=== PATIENT | male | born 1950 | race Two or more races ===

== ENCOUNTER 2020-02-08 17:32 | Inpatient (IN) | payer OTHER ==
[~2020-02-08] VITALS: Ht 170.2 cm; Wt 54.4 kg
[2020-02-08] MEDS ORDERED: ZOFRAN8 MG (17:41)
[2020-02-08] MEDS ORDERED: TRAM1TAB98 (17:41)
[2020-02-08] MEDS ORDERED: AVAPRO75 MG (17:42)
[2020-02-08] MEDS ORDERED: SYNTHROID75 MCG (17:42)
== END 2020-02-14 16:33 | disposition home or self-care (01) | DRG 693 ==
LOC: ER 17:32 → MEDJ 02-09 01:31
PROVIDERS: Radiology Vascular & Interventional Radiology; ADMIT Urology; ATTEND Urology
PROC: BW21ZZZ Computerized Tomography (CT Scan) of Abdomen and Pelvis (ICD-10-PCS; 2020-02-08)
PROC: 0T9330Z Drainage of Right Kidney Pelvis with Drainage Device, Percutaneous Approach (ICD-10-PCS; 2020-02-13)
PROC: 0T9430Z Drainage of Left Kidney Pelvis with Drainage Device, Percutaneous Approach (ICD-10-PCS; principal; 2020-02-13 17:00)
DX: N13.1 Hydronephrosis with ureteral stricture, not elsewhere classified (principal); U07.1 COVID-19; C67.9 Malignant neoplasm of bladder, unspecified; E03.8 Other specified hypothyroidism; I10 Essential (primary) hypertension

== ENCOUNTER 2020-02-28 12:20 | Inpatient (IN) | payer OTHER ==
[~2020-02-28] VITALS: Ht 170.2 cm; Wt 54.4 kg
[~2020-02-28 12:20] MED LIST: AVAPRO75 MG; SYNTHROID75 MCG; TRAM1TAB98; ZOFRAN8 MG
[2020-02-28] MEDS ORDERED: METFORMIN HCL500 M3 PO (12:30)
[2020-03-09] MEDS ORDERED: TRAMADOL HCL50 MG PO (16:25)
[2020-03-09] MEDS ORDERED: OXYBUTYNIN CHLOR5 MG PO (16:25)
[2020-03-09] MEDS ORDERED: MEGESTROL ACETA40 MG PO (16:25)
[2020-03-09] MEDS ORDERED: IRBESARTAN75 MG PO (16:25)
[2020-03-09] MEDS ORDERED: LEVOTHYROXINE75 MCG PO (16:25)
[2020-03-09] MEDS ORDERED: ZOFRAN8 MG PO (16:25)
[2020-03-09] MEDS ORDERED: SPIRONOLACTONE25 MG PO (16:25)
== END 2020-03-09 18:48 | disposition home or self-care (01) | DRG 698 ==
LOC: ER 12:20 → MEDJ 20:49 → SURH 03-04 21:16
PROVIDERS: ADMIT Internal Medicine; ATTEND Internal Medicine
PROC: 4A033R1 Measurement of Arterial Saturation, Peripheral, Percutaneous Approach (ICD-10-PCS; 2020-02-28)
PROC: 8E0ZXY6 Isolation (ICD-10-PCS; 2020-02-28)
PROC: 0T9130Z Drainage of Left Kidney with Drainage Device, Percutaneous Approach (ICD-10-PCS; principal; 2020-02-29)
PROC: 30233N1 Transfusion of Nonautologous Red Blood Cells into Peripheral Vein, Percutaneous Approach (ICD-10-PCS; 2020-02-29)
PROC: BB24ZZZ Computerized Tomography (CT Scan) of Bilateral Lungs (ICD-10-PCS; 2020-03-02)
PROC: BW21ZZZ Computerized Tomography (CT Scan) of Abdomen and Pelvis (ICD-10-PCS; 2020-03-02)
PROC: BW38Y0Z Magnetic Resonance Imaging (MRI) of Head using Other Contrast, Unenhanced and Enhanced (ICD-10-PCS; 2020-03-04)
DX: N99.522 Malfunction of incontinent external stoma of urinary tract (principal); U07.1 COVID-19; J90 Pleural effusion, not elsewhere classified; B37.49 Other urogenital candidiasis; B96.5 Pseudomonas (aeruginosa) (mallei) (pseudomallei) as the cause of diseases classified elsewhere; N99.521 Infection of incontinent external stoma of urinary tract; E03.8 Other specified hypothyroidism; D64.9 Anemia, unspecified; I10 Essential (primary) hypertension; C67.8 Malignant neoplasm of overlapping sites of bladder; E87.6 Hypokalemia
CPT/HCPCS: 70545